=== PATIENT | male | born 1945 | race Caucasian/White ===

== ENCOUNTER 2021-08-01 15:08 | Emergency (ER) | payer MEDICARE ==
[2021-08-01] MEDS ORDERED: Lidocaine 1% 5 ML VIAL INJECT ONE (15:28)
[2021-08-01] MEDS ORDERED: Bacitracin Oint 1 GM U/D Packet TOP ONE (15:46)
== END 2021-08-01 15:55 | disposition home or self-care (01) ==
LOC: JP.ED 15:08
DX: S60.851A Superficial foreign body of right wrist, initial encounter (principal); W45.8XXA Other foreign body or object entering through skin, initial encounter
CPT/HCPCS: 99281; 99283